=== PATIENT | male | born 1980 | race African-American/Black ===

== ENCOUNTER 2025-05-16 19:27 | Emergency (ER) | payer MEDICAID ==
[~2025-05-16] VITALS: Ht 182.9 cm; Wt 133.0 kg
[2025-05-16 19:31] VITALS: O2SAT 95
[2025-05-16 20:18] LABS: BASOPHILS % 0.4 % (0.0-2.0); EOSINOPHILS % 1.1 % (0.0-5.0); HEMATOCRIT. 45.5 % (42.0-52.0); HEMOGLOBIN. 14.3 g/dL (14.0-18.0); LYMPHOCYTES % 21.2 % (20.0-50.0); MEAN PLATELET VOLUME 9.0 fl (7.4-10.4); MONOCYTES % 2.6 % (2.0-8.0); NEUTROPHILS % 74.7 % (40.0-76.0); PLATELET 202 x1000/uL (130-400); RED BLOOD CELL COUNT 6.31 mill/uL (4.7-6.1); RED CELL DISTRIBUTION WIDTH 16.0 % (11.6-14.6)
[2025-05-16 20:29] LABS: CREATININE 1.4 mg/dL (0.6-1.3); UREA NITROGEN BLOOD 9 mg/dL (9-23)
[2025-05-16 20:30] LABS: ASPARTATE AMINOTRANSFERASE 21 IU/L (<34)
[2025-05-16 20:31] LABS: BILIRUBIN DIRECT 0.1 mg/dL (<=3.0); BILIRUBIN TOTAL 0.5 mg/dL (0.1-1.0); PROTEIN TOTAL 6.4 g/dL (6.0-8.3)
[2025-05-16] MEDS: SODIUM CHLORIDE 0.9% 1,000 ML IV ONE (20:56)
[2025-05-16 20:59] LABS: CLARITY URINE CLEAR (CLEAR); COLOR URINE YELLOW (YELLOW); GLUCOSE URINE NEGATIVE (NEGATIVE); KETONES URINE TRACE (NEGATIVE); LEUKOCYTE ESTERASE URINE NEGATIVE (NEGATIVE); NITRITE URINE NEGATIVE (NEGATIVE); OCCULT BLOOD URINE NEGATIVE (NEGATIVE); PH URINE 6.5 (4.5-8.0); PROTEIN URINE TRACE (NEGATIVE); SPECIFIC GRAVITY URINE 1.025 (1.005-1.030); UROBILINOGEN URINE 1.0 E.U./dL (0.2-1.0)
[2025-05-16] MEDS: KETOROLAC 15MG/ML VIAL IV ONE (21:01)
[2025-05-16 21:06] LABS: BACTERIA URINE NONE SEEN; RBC URINE NONE SEEN /hpf (0-2); SQUAMOUS EPITHELIAL CELL URINE RARE /lpf (RARE/1+); WBC URINE 0-2 /hpf (0-2)
[2025-05-16 21:57] LABS: TROPONIN I HIGH SENSITIVITY < 4 ng/L (3.0-53)
[2025-05-16 22:59] LABS: INR 1.0
[2025-05-16 23:30] LABS: TROPONIN I HIGH SENSITIVITY < 4 ng/L (3.0-53)
[2025-05-17] MEDS ORDERED: CELE-116 MT (00:56)
[2025-05-17 01:00] VITALS: BP 143/87; PULSE 54; RESP 19; TEMP 36.8; O2SAT 97
== END 2025-05-17 01:14 | disposition home or self-care (01) ==
LOC: ER 19:27
DX: R10.9 Unspecified abdominal pain (principal); R07.9 Chest pain, unspecified; R06.02 Shortness of breath
CPT/HCPCS: 80076; 80048; 81003; 83690; 85025; 85379; 85610; 85730; 84484; 36415; 74174; 71045; 71275; 74176; 93005; 96361; 96374; 99285; Q9967; J1885; J7030; Z7610